=== PATIENT | female | born 1995 | race Caucasian/White ===

== ENCOUNTER 2018-08-15 16:15 | Emergency (ER) | payer MEDICAID ==
[~2018-08-15] VITALS: Ht 154.9 cm; Wt 61.3 kg
[2018-08-15 16:35] VITALS: BP 125/68
--- NOTE | 2018-08-15 16:50 | NUR ---
PT AMBULATED TO BED 7
--- NOTE | 2018-08-15 16:54 | NUR ---
15 WKS AND 5 DAY PT BIB FAMILY WITH C/O LOWER ABDOMINAL CRAMPING PAIN 12/15; DENIES VAG BLEEDING, DIZZINESS, OR N/V; G2 M1, LMP 04/26/2018. VSS; PATIENT POSITIONED FOR COMFORT; HOB ELEVATED; BEDRAILS UP X2; BED DOWN. ER MD MADE AWARE OF PT STATUS.
[2018-08-15] MEDS ORDERED: NACL 0.9% 1,000 ML IV ONE (16:55)
[2018-08-15 17:24] LABS: BASOPHILS % (AUTO) 0.2 % (0.0-2.0); EOSINOPHILS % (AUTO) 0.7 % (0.0-4.0); HEMATOCRIT 37.8 % (36-48); HEMOGLOBIN 12.6 g/dL (12.0-16.0); LYMPHOCYTES # (AUTO) 1.7 K/uL (2.5-16.5); LYMPHOCYTES % (AUTO) 24.9 % (20.5-51.1); MEAN CORPUSCULAR HEMOGLOBIN 30 pg (27-31); MEAN CORPUSCULAR HGB CONC 33 g/dL (33-37); MEAN CORPUSCULAR VOLUME 89.1 fL (80-94); MONOCYTES # (AUTO) 0.4 K/uL (0.8-1.0); NEUTROPHILS # (AUTO) 4.6 K/uL (1.8-7.7); NEUTROPHILS % (AUTO) 68.2 % (42.2-75.2); PLATELET COUNT (AUTO) 196 K/uL (140-450); RED BLOOD CELL COUNT(AUTO) 4.24 MIL/uL (4.20-5.40); RED CELL DISTRIBUTION WIDTH 13.5 % (11.6-13.7); WHITE BLOOD COUNT (AUTO) 6.8 K/uL (4.8-10.8)
[2018-08-15 17:25] LABS: APPEARANCE,URINE CLEAR (CLEAR); BILIRUBIN,URINE NEGATIVE (NEGATIVE); BLOOD, URINE NEGATIVE (NEGATIVE); COLOR,URINE YELLOW (YELLOW); LEUKOCYTE ESTERASE ,URINE NEGATIVE (NEGATIVE); NITRITE, URINE NEGATIVE (NEGATIVE); PH,URINE 7.5 (5.0-9.0); UGLUCOSE NEGATIVE (NEGATIVE)
[2018-08-15 17:33] LABS: ANION GAP 12.4 (8-16); CARBON DIOXIDE 25.7 mmol/L (21-32); CREATININE 0.5 mg/dL (0.6-1.3); POTASSIUM 4.1 mmol/L (3.5-5.1)
--- NOTE | 2018-08-15 19:14 | NUR ---
report given to Pedro Pablo HUDSNO
[2018-08-15 20:56] VITALS: BP 122/64
== END 2018-08-15 20:56 | disposition home or self-care (01) ==
LOC: MED 16:15
DX: O20.0 Threatened abortion (principal); Z3A.15 15 weeks gestation of pregnancy; Z91.018 Allergy to other foods
CPT/HCPCS: 36415; 76805; 80048; 81003; 81025; 84702; 85025; 86900; 86901; 99284; J7030

== ENCOUNTER 2019-01-28 14:07 | Observation (INO) | payer MEDICAID, OTHER ==
[~2019-01-28] VITALS: Ht 154.9 cm; Wt 81.7 kg
[2019-01-28 14:10] VITALS: BP 120/61
[2019-01-28] MEDS ORDERED: PNV1TABL8 PO (14:13)
[2019-01-28] MEDS ORDERED: FERR325E14 PO (14:41)
[2019-01-28 15:08] VITALS: BP 120/60
== END 2019-01-28 18:58 | disposition home or self-care (01) ==
LOC: MED 14:07 → MLD 14:25
PROVIDERS: ADMIT Obstetrics & Gynecology; ATTEND Obstetrics & Gynecology
DX: O26.893 Other specified pregnancy related conditions, third trimester (principal); R10.9 Unspecified abdominal pain; Z3A.39 39 weeks gestation of pregnancy
CPT/HCPCS: 76805; G0378; Q0092; 59025; 81000; 99281